=== PATIENT | male | born 1995 | race Two or more races ===

== ENCOUNTER 2018-05-08 19:30 | Emergency (ER) | payer SELFPAY ==
[~2018-05-08] VITALS: Ht 165.1 cm; Wt 69.0 kg
[2018-05-09] VITALS: BP 127/87
== END 2018-05-09 00:01 | disposition home or self-care (01) ==
LOC: ER 19:30
DX: H60.11 Cellulitis of right external ear (principal)
CPT/HCPCS: 10060; 99283

== ENCOUNTER 2020-03-21 22:56 | Emergency (ER) | payer SELFPAY ==
[~2020-03-21] VITALS: Ht 165.1 cm; Wt 73.0 kg
[2020-03-22 01:24] LABS: BASOPHILS % 0.3 % (0.0-2.0); CHLORIDE 106 mEq/L (98-107); EOSINOPHILS % 3.2 % (0.0-5.0); HEMOGLOBIN. 14.9 g/dL (14.0-18.0); MEAN CORPUSCULAR HEMOGLOBIN 30.2 pg (28.0-32.0); MEAN CORPUSCULAR VOLUME 85.3 fL (80.0-94.0); MEAN PLATELET VOLUME 7.7 fl (7.4-10.4); MONOCYTES % 8.9 % (2.0-8.0); NEUTROPHILS % 57.6 % (40.0-76.0); PLATELET 273 x1000/uL (130-400); RED BLOOD CELL COUNT 4.93 mill/uL (4.7-6.1); RED CELL DISTRIBUTION WIDTH 13.2 % (11.6-14.6)
[2020-03-22 01:27] LABS: ETHANOL BLOOD < 10 mg/dL
[2020-03-22 01:28] LABS: *AMPHETAMINES SCREEN URINE NEGATIVE (NEGATIVE); *BARBITURATES SCREEN URINE NEGATIVE (NEGATIVE); *BENZODIAZEPINES SCREEN URINE NEGATIVE (NEGATIVE); *COCAINE SCREEN URINE NEGATIVE (NEGATIVE); METHADONE URINE SCREEN NEGATIVE (NEGATIVE)
[2020-03-22 01:29] LABS: CANNABINOID URINE SCREEN NEGATIVE (NEGATIVE); OPIATES URINE SCREEN NEGATIVE (NEGATIVE); PHENCYCLIDINE URINE SCREEN NEGATIVE (NEGATIVE)
[2020-03-22 06:40] VITALS: BP 124/74
== END 2020-03-22 07:04 | disposition home or self-care (01) ==
LOC: ER 22:56
DX: F20.0 Paranoid schizophrenia (principal); R03.0 Elevated blood-pressure reading, without diagnosis of hypertension; E87.6 Hypokalemia
CPT/HCPCS: 36415; 80048; 80305; 80307; 80320; 80329; 85025; 99285; G0480

== ENCOUNTER 2020-12-22 17:51 | Emergency (ER) | payer SELFPAY ==
[~2020-12-22] VITALS: Ht 165.1 cm; Wt 82.0 kg
[2020-12-22 22:15] VITALS: BP 120/70
== END 2020-12-22 22:15 | disposition home or self-care (01) ==
LOC: ER 17:51
DX: F20.9 Schizophrenia, unspecified (principal)
CPT/HCPCS: 99281

== ENCOUNTER 2024-04-21 12:37 | Emergency (ER) | payer SELFPAY ==
[~2024-04-21] VITALS: Ht 165.1 cm; Wt 74.0 kg
[2024-04-21 12:44] VITALS: PULSE 73; O2SAT 100
[2024-04-21 13:07] VITALS: BP 112/75; RESP 16; TEMP 36.8; O2SAT 99
== END 2024-04-21 14:09 | disposition home or self-care (01) ==
LOC: ER 12:37
DX: Z00.8 Encounter for other general examination (principal); F20.9 Schizophrenia, unspecified
CPT/HCPCS: 99281